=== PATIENT | female | born 1970 | race Hispanic/Latino ===

== ENCOUNTER 2022-07-23 22:43 | Emergency (ER) | payer OTHER ==
[~2022-07-23] VITALS: Ht 152.4 cm; Wt 118.8 kg
[2022-07-23] MEDS ORDERED: SODIUM CHLORIDE 0.9% 1000ML 1,000 ML IV STA (23:19)
[2022-07-23] MEDS ORDERED: KETOROLAC TROMETHAMINE 30 MG/ML VIAL IV STA (23:19)
[2022-07-23] MEDS ORDERED: Morphine 4mg INJECTION 4 MG/ML INJ IV STA (23:37)
[2022-07-23] MEDS ORDERED: ONDANSETRON HCL INJ 2MG/ML 2ML 2 MG/ML VIAL IV STA (23:37)
[2022-07-24] MEDS ORDERED: IOPAMIDOL 370 MG/ML 100 ML INFUS..BTL INJ ONE (00:01)
[2022-07-24] MEDS ORDERED: ONDANSETRON HCL INJ 2MG/ML 2ML 2 MG/ML VIAL ONE (00:05)
[2022-07-24] MEDS ORDERED: SODIUM CHLORIDE 0.9% 1000ML 1,000 ML ONE (00:05)
[2022-07-24] MEDS ORDERED: Morphine 4mg INJECTION 4 MG/ML INJ ONE (00:05)
[2022-07-24] MEDS ORDERED: ACETAMINOPHEN-1 EAC4 PO (01:39)
== END 2022-07-24 01:46 | disposition home or self-care (01) ==
LOC: FSED 22:50
DX: R31.9 Hematuria, unspecified (principal); R10.30 Lower abdominal pain, unspecified; E11.65 Type 2 diabetes mellitus with hyperglycemia; I10 Essential (primary) hypertension; E78.5 Hyperlipidemia, unspecified
CPT/HCPCS: 74177; 80048; 80076; 81003; 81025; 85025; 99284; J2270; J2405; J7030; Q9967

== ENCOUNTER 2024-09-06 07:50 | Emergency (ER) | payer OTHER ==
[~2024-09-06] VITALS: Ht 152.4 cm; Wt 77.3 kg
[~2024-09-06 07:50] MED LIST: ACETAMINOPHEN-1 EAC4 PO; BUPROPION HCL100 MG PO; ESGIC 50-325-41 EACH PO; LAMOTRIGINE100 MG PO; MECLIZINE HCL12.5 MG PO; NEURONTIN100 MG PO; ONDANSETRON ODT4 MG PO; RISPERIDONE2 MG; TERBINAFINE HC250 MG PO; TIZANIDINE HCL4 M1 PO; TRULICITY0.75 MG/0.; XANAX0.5 MG PO
[2024-09-06 07:55] VITALS: PULSE 81; RESP 16; TEMP 97.7
[2024-09-06] MEDS ORDERED: CORICIDIN HBP1 EAC3 PO (09:09)
[2024-09-06] MEDS ORDERED: VENTOLIN HFA18 GM INH (09:10)
[2024-09-06 09:23] VITALS: BP 122/69; PULSE 67; RESP 16; TEMP 98.4; O2SAT 99
== END 2024-09-06 09:24 | disposition home or self-care (01) ==
LOC: FSED 07:57
DX: R05.9 Cough, unspecified (principal); J06.9 Acute upper respiratory infection, unspecified; I10 Essential (primary) hypertension; E11.9 Type 2 diabetes mellitus without complications; E78.5 Hyperlipidemia, unspecified; F41.9 Anxiety disorder, unspecified; F32.A Depression, unspecified; Z11.52 Encounter for screening for COVID-19; Z98.84 Bariatric surgery status
CPT/HCPCS: 0223U; 71046; 87400; 99284